=== PATIENT | female | born 1990 | race Caucasian/White ===

== ENCOUNTER 2025-01-05 09:18 | Emergency (ER) | payer MEDICAID ==
[~2025-01-05 09:18] MED LIST: METO-292 PO
[2025-01-05 09:19] VITALS: TEMP 96.8
--- NOTE | 2025-01-05 10:17 | Physician Documentation ---
History of Present Illness ~ Chief Complaint: Medical Clearance Stated Complaint: MED CLEARANCE Time Seen by MD: 09:28 Primary Medical Doctor: NONE HPI Patient is seen today with complaints of needing med clearance to enter [facility]. 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 She states over the last week she has only used about a half a gram total. 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 She has no other concern or complaint at this time. Tetanus within 5 years?: No (unk) Medication Reconciliation Allergies: Coded Allergies: fluoxetine (Verified Allergy, Intermediate, hives, SOB, 09/29/17) Scheduled PRN Metoclopramide HCl (Reglan), 1 TABLET PO QID PRN for nausea/vomiting Past Medical History Past Medical History: No Pertinent History Past Surgical History: other Alcohol Use: Occasionally Drug Use: marijuana Lives with: Other Lives In: Home Occupation: unemployed Review of Systems Constitutional: Denies: chills, fever, weakness Eyes: Denies: pain, blurred vision ENT: Denies: ear pain, nose pain, throat pain, mouth pain Respiratory: Denies: cough, shortness of breath Cardiovascular: Denies: chest pain, palpitations Gastrointestinal: Denies: abdominal pain, nausea, vomiting Genitourinary: Denies: burning, dysuria Female Genitalia: Denies: vaginal discharge, pelvic pain Neurological: Denies: headache, dizziness Musculoskeletal: Denies: pain, swelling Integumentary: Denies: rash, lesions Allergic/Immunologic: Denies: hives, itching Hematologic/Lymphatic: Denies: no symptoms reported Psychiatric: Denies: depression, anxiety Physical Exam Vital Signs: Temperature: 96.8, Source: Temporal, Heart Rate: 82, Respiratory Rate: 16, BP: 135/74, Pulse Oximetry: 97 Oxygen Flow Rate: 0 Physical Exam General: Awake and Alert, no acute distress. HEENT: Conjunctiva pink, Sclera clear, Mucus Membranes moist. Neck: Supple without masses and tenderness. Resp: Unlabored. Lungs clear to auscultation bilaterally. Heart: Regular Rate and rhythm, normal S1 and S2 without murmur, rub or gallop. Abdomen: Soft and non tender no organomegaly Extremities: No cyanosis,clubbing or edema. Skin: Warm and Dry. Progress Results/Orders Results/Orders Vital Signs 01/05/25 01/05/25 09:19 10:02 Temp 96.8 Pulse 82 85 Resp 16 16 B/P (MAP) 135/74 121/83 (96) Pulse Ox 97 99 O2 Flow Rate 0 0 Medical Decision Making Findings Patient is seen today with complaints of needing med clearance for [facility]. Patient states that she recently started methadone a little over a week ago and has cut her fentanyl use from 3 g daily down to just about a half of a g over the last week. She has no other concern or complaint at this time. She denies any suicidal or homicidal ideation. Patient is medically cleared for entrance into detox program at [facility]. Patient will return to ED with any worsening, concerning or changing symptoms. Departure Disposition: 01 HOME / SELF CARE / HOMELESS Impression: Primary Impression: General medical exam Condition: Stable Discharge Instructions: Medical Screening Exam Additional Instructions: Patient is medically cleared for entrance into detox program at [facility]. Patient will return to ED with any worsening, concerning or changing symptoms. Referrals: NO PRIMARY CARE PROVIDER (PCP) Signature Scribe Signature: No scribe Attestation: No scribe HARESH LINTON PAC Jan 05, 2025 10:17
[2025-01-05 10:50] VITALS: BP 130/77; PULSE 73; RESP 16; O2SAT 98
== END 2025-01-05 10:54 | disposition home or self-care (01) ==
LOC: ER 09:19
DX: Z00.00 Encounter for general adult medical examination without abnormal findings (principal); F12.90 Cannabis use, unspecified, uncomplicated; Z88.8 Allergy status to other drugs, medicaments and biological substances
CPT/HCPCS: 99282

== ENCOUNTER 2025-01-18 11:08 | Outpatient (CLI) | payer MEDICAID ==
--- NOTE | 2025-01-18 12:55 | ELECTROCARDIOGRAPH REPORT ---
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 ISRAEL Bello Measurements Intervals [place] Rate: 59 P: 40 PA: 142 QRS: 76 QRSD: 98 T: 50 QT: 445 QTc: 441 Interpretive Statements Sinus bradycardia Electronically Signed On 01-18-2025 15:43:[address] ISRAEL Bello Please click the below link to view image of tracing.
== END 2025-01-18 23:59 | disposition home or self-care (01) ==
LOC: RAD 11:08
PROVIDERS: ATTEND Physician Assistant
DX: R00.1 Bradycardia, unspecified (principal); F11.20 Opioid dependence, uncomplicated
CPT/HCPCS: 93005

== ENCOUNTER 2025-02-04 12:06 | Outpatient (CLI) | payer MEDICAID ==
--- NOTE | 2025-02-04 12:47 | ELECTROCARDIOGRAPH REPORT ---
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 ISRAEL Bello Measurements Intervals [place] Rate: 72 P: 67 [place]: 150 QRS: 84 QRSD: 105 T: 46 QT: 429 QTc: 470 Interpretive Statements Sinus rhythm Electronically Signed On 02-05-2025 16:46:[address] ISRAEL Bello Please click the below link to view image of tracing.
== END 2025-02-04 23:59 | disposition home or self-care (01) ==
LOC: RAD 12:06
PROVIDERS: ATTEND Physician Assistant
DX: F11.20 Opioid dependence, uncomplicated (principal); I49.8 Other specified cardiac arrhythmias
CPT/HCPCS: 93005

== ENCOUNTER 2025-02-17 12:00 | Outpatient (CLI) | payer MEDICAID ==
--- NOTE | 2025-02-17 13:38 | ELECTROCARDIOGRAPH REPORT ---
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 ISRAEL Bello Measurements Intervals [place] Rate: 76 P: 53 [place]: 151 QRS: 63 QRSD: 97 T: 56 QT: 411 QTc: 463 Interpretive Statements Sinus rhythm Electronically Signed On 02-17-2025 17:16:[address] ISRAEL Bello Please click the below link to view image of tracing.
== END 2025-02-17 23:59 | disposition home or self-care (01) ==
LOC: RAD 12:00
PROVIDERS: ATTEND Physician Assistant
DX: F11.20 Opioid dependence, uncomplicated (principal)
CPT/HCPCS: 93005